=== PATIENT | female | born 1985 | race Caucasian/White ===

== ENCOUNTER 2024-04-11 13:38 | Outpatient (AMB) | payer OTHER, SELFPAY ==
--- NOTE | 2024-04-11 13:56 | MHC.OFFWIV ---
Intake Vital Signs 04/11/24 13:58 Height 5 ft 10 in Weight 155 lb BMI 22.2 BP 118/64 Blood Pressure Location Rt brachial Position Standing Pulse 66 Pulse Source Pulse Oximeter Temp 97.8 F Temp Source Oral Pulse Oximetry (%) 98 Oxygen Delivery Method Room Air Intake Visit Reasons: [employer] Lower back pain Intake Note: pt is here for lower back pain, patient states she was playing pickle ball and she has been having severe back pain since Patient Tobacco Use Status: Never used Tobacco Allergies No Known Allergies Allergy (Verified 04/11/24 14:19) Medication List - Last Reconciled 04/11/24 by GARY Dudley No Known Home Meds Do you need a note to return to daycare/school/sports/work: No HPI HPI Comments History of Present Illness Details Patient is a 38-year-old female in today for a sick visit. Patient has no significant past medical history. She reports exercising strenuously over the past couple of days, went to plugging in an appliance, bending over to do so, and felt a sharp pain in her lower back/right hip area. Patient states that the pain has been present for the past 6 to 8 hours. Denies any tingling or numbness. Denies pain radiating down her extremities. Denies saddle numbness. Has not utilized any medication for relief. Denies direct trauma to the area. On physical exam patient has tenderness to right SI joint. Also has limited range of motion with flexion extension and rotation of the lower back. Patient is uncomfortable when sitting down. Straight leg test negative. No L-spine her C-spine tenderness.. Will obtain lumbar and SI joint x-ray. [facility] Social History Patient Tobacco Use Status: Never used Tobacco Review of Systems Const All systems reviewed & are unremarkable except as noted in HPI and below Denies chills and Denies fever(s) Physical Exam Vital Signs: Last Vital Signs Temp 97.8 F 04/11/24 13:58 Pulse 66 04/11/24 13:58 BP 118/64 04/11/24 13:58 Pulse Ox 98 04/11/24 13:58 Oxygen Delivery Method Room Air 04/11/24 13:58 BMI result Body Mass Index 22.2 Vital signs reviewed stable. Const Other: Appearance: Alert.? Oriented X3.? No acute distress.? Head: Normocephalic, Respiratory: No respiratory distress.? Skin: Skin warm and dry.? Normal skin color.? Normal skin turgor.? Extremities: No lower extremity edema.? Back: No midline tenderness, no C-spine tenderness, Limited range of motion to flexion/extension and rotation of lower back, no CVA tenderness bilaterally. +Right SI tenderness. Neuro: Oriented X 3.? No motor deficit.? No sensory deficit. Assessment & Plan Assessment & Plan (1) Lumbar pain: Comment: Will give patient meloxicam and cyclobenzaprine. Also ordered lumbar and SI joint x-ray. Will follow-up with results with patient. Patient has been educated on signs of worsening symptoms and when to return to the walk-in or when to present to the ED Code(s): M54.50 - Low back pain, unspecified Plan: Will call with results. Plan Follow up with PCP. Orders: Orders XR sacroiliac joint 1-2V Today M53.3 - Sacrococcygeal disorders, not elsewhere classified XR lumbar spine 2-3V Today M54.50 - Low back pain, unspecified Medications: New cyclobenzaprine 10 mg PO BEDTIME PRN 20 tabs 0RF muscle spasm meloxicam Do not combine with other NSAIDS. 15 mg PO DAILY 14 tabs 0RF Coding Level of Care Code Est Pt Level 3 (59329) Diagnoses Lumbar pain M54.50 Time Spent (min) 28
[2024-04-11 13:58] VITALS: BP 118/64; PULSE 66; TEMP 36.6; O2SAT 98; BMI 22.2
== END 2024-04-11 14:45 | disposition home or self-care (01) ==
PROVIDERS: Visit Provider Nurse Practitioner Primary Care
DX: M54.50 Low back pain, unspecified (principal)
CPT/HCPCS: 99213

== ENCOUNTER 2024-04-11 14:19 | Outpatient (REF) | payer OTHER, SELFPAY ==
--- NOTE | ~2024-04-11 | XR_ITS ---
EXAMINATION: XR SACROILIAC JOINTS CLINICAL INFORMATION: Sacrococcygeal disorders, not elsewhere classified COMPARISON: None available. TECHNIQUE: 3 views of the sacroiliac joints FINDINGS: Bones and soft tissues are normal. No fracture. Alignment is anatomic. Sacroiliac joint spaces are well-maintained without erosions or surrounding sclerosis. XR/XR sacroiliac joint 1-2V IMPRESSION: Normal sacroiliac joints.
--- NOTE | ~2024-04-11 | XR_ITS ---
EXAMINATION: XR LUMBOSACRAL SPINE CLINICAL INFORMATION: Low back pain COMPARISON: None available. TECHNIQUE: 2 views of the lumbosacral spine. FINDINGS: The vertebral bodies and posterior elements are normal. The disc spaces are preserved and the vertebral alignment is normal. The paraspinal soft tissues are normal. XR/XR lumbar spine 2-3V IMPRESSION: Unremarkable examination.
== END 2024-04-11 14:20 | disposition home or self-care (01) ==
LOC: HO.HMGCX 14:19
PROVIDERS: Visit Provider Nurse Practitioner Primary Care
DX: M53.3 Sacrococcygeal disorders, not elsewhere classified (principal); M54.50 Low back pain, unspecified
CPT/HCPCS: 72100; 72200